=== PATIENT | female | born 1990 | race Caucasian/White ===

== ENCOUNTER 2017-03-19 14:36 | Emergency (ER) | payer SELFPAY ==
[2017-03-19 15:21] VITALS: RESP 16; O2SAT 96
--- NOTE | 2017-03-19 15:33 | EDPHY ---
H & P HPI/ROS: Chief complaint: Abscess on tailbone History of present illness: This is a 26-year-old female who presents to the emergency department for evaluation treatment of what she believes is an abscess on her tailbone. She states she has developed pain and swelling in the tailbone region over the last 1-2 days. She states she had similar symptoms a number of years ago that spontaneously drained and resolved. She denies specific precipitating factors. She denies other associated signs or symptoms including no fevers, no abdominal pain, no changes in bowel function or urinary symptoms. - Personal History Current Tetanus Diphtheria and Acellular Pertussis (TDAP): Yes - Social History Smoking Status: Current some day smoker - Physical Exam Exam: General Appearance: Alert and nontoxic. Eyes: Pupils equal and round no injection. Respiratory: Chest is nontender, lungs are clear to auscultation. Cardiac: regular rate and rhythm. Gastrointestinal: Abdomen is soft and nontender, no masses, bowel sounds normal. Musculoskeletal: Ambulating without difficulty Skin: Mild erythema and edema to the superior gluteal cleft Constitutional: Initial Vital Signs Temperature (C) 36.9 C 03/19/17 15:19 Heart Rate 82 03/19/17 15:19 Respiratory Rate 16 03/19/17 15:19 Blood Pressure 96/74 L 03/19/17 15:19 O2 Sat (%) 96 03/19/17 15:19 O2 Delivery Mode Room Air Allergies/Adverse Reactions: No Known Allergies Allergy (Unverified 03/19/17 15:18) Home Medications: Medication Instructions Recorded Bcp 03/19/17 Medical Decision Making Procedures: Procedure: Pilonidal abscess drainage. The patient's pilonidal abscess was located in the superior gluteal cleft of. I obtained verbal consent from the patient to drain the abscess who was informed about the possibility of bleeding and pain. The abscess was incised with a scalpel and a large amount of purulent drainage was expressed. I irrigated the wound and placed some packing. The patient tolerated the procedure well. The procedure was performed by myself. ED Course/Re-evaluation: Patient seen under the supervision of my secondary supervising physician Dr. Micah Johnson. Patient presents to the emergency department concerned she has an abscess in the tailbone region that needs to be drained. She has had similar in past. History and physical exam is consistent with pilonidal abscess. It is incised, drained and packed. There are no surrounding cellulitic changes. I do not believe antibiotics are warranted at this time. Patient will be discharged home. Home care is discussed. She is to follow up with a primary care doctor for recheck. Strict return precautions are given. Patient voiced understanding and agreement with plan. Differential Diagnosis: Included but not limited to pilonidal abscess, external abscess, cellulitis, unlikely perianal, perirectal abscess or AV fistula Departure - Departure Disposition: Home, Routine, Self-Care Clinical Impression: Pilonidal abscess Condition: Good Instructions: Pilonidal Cyst (ED) Additional Instructions: Follow-up with a primary care doctor next week for recheck Packing to be removed in 2 days If symptoms worsen or new symptoms develop return to the emergency room for recheck Referrals: NONE *PRIMARY CARE P,. [Primary Care Provider] - As per Instructions [facility],. [Clinic] - As per Instructions
[2017-03-19 16:12] VITALS: BP 109/64; PULSE 69; TEMP 97.9
== END 2017-03-19 16:13 | disposition home or self-care (01) ==
PROC: 0H98XZZ Drainage of Buttock Skin, External Approach (ICD-10-PCS; principal; 2017-03-19)
DX: L05.01 Pilonidal cyst with abscess (principal); F17.200 Nicotine dependence, unspecified, uncomplicated